=== PATIENT | female | born 1995 | race Caucasian/White ===

== ENCOUNTER 2022-01-28 01:38 | Emergency (ER) | payer OTHER ==
[2022-01-28] MEDS ORDERED: ACETAMINOPHEN 500 MG TABLET PO ONE (01:45)
[2022-01-28 01:48] VITALS: BP_SYST 150
--- NOTE | 2022-01-28 01:55 | NUR ---
PT BROUGHT IN BY MATTY GALEANO TO BOOK
[2022-01-28 03:51] VITALS: BP_SYST 150
== END 2022-01-28 02:45 ==
LOC: SED 01:38
DX: S09.90XA Unspecified injury of head, initial encounter (principal); Y04.0XXA Assault by unarmed brawl or fight, initial encounter; Y93.89 Activity, other specified; Y92.89 Other specified places as the place of occurrence of the external cause; Y99.8 Other external cause status
CPT/HCPCS: 70450-TC; 76376; 99284